=== PATIENT | male | born 1965 | race Caucasian/White ===

== ENCOUNTER 2017-12-24 14:23 | Emergency (ER) | payer MEDICARE, MEDICAID ==
[~2017-12-24] VITALS: Ht 165.1 cm; Wt 64.3 kg
[2017-12-24 14:35] VITALS: BP 109/61
[2017-12-24] MEDS ORDERED: proCHLORperazine 10 MG/2 ml inj IM ONE (14:45)
[2017-12-24] MEDS ORDERED: ketorolac trometh inj. 60 MG/2 ML VIAL IM ONE (14:45)
[2017-12-24] MEDS ORDERED: PROC-8 PO (15:00)
== END 2017-12-24 15:21 | disposition home or self-care (01) ==
LOC: ER 14:24
DX: G43.909 Migraine, unspecified, not intractable, without status migrainosus (principal); I10 Essential (primary) hypertension; Z88.6 Allergy status to analgesic agent
CPT/HCPCS: 96372; 99284; J0780; J1885